=== PATIENT | female | born 2000 | race American Indian/Alaskan Native ===

== ENCOUNTER 2021-12-30 12:02 | Emergency (ER) | payer SELFPAY ==
[2021-12-30] MEDS ORDERED: METOCLOPRAMIDE 10 MG/2 ML INJ IV ONE (16:57)
[2021-12-30] MEDS ORDERED: SODIUM CHLORIDE 0.9% 1000 ML 1,000 ML IV ONE ×3 (16:57→20:33)
[2021-12-30] MEDS ORDERED: diphenhydrAMINE 50 MG/ML VIAL IV ONE (16:57)
[2021-12-30] MEDS ORDERED: dexAMETHasone 4 MG/ML VIAL IV ONE (16:57)
[2021-12-30 17:09] LABS: Bacteria,Urine 3+ /HPF (Negative); Mucus,Urine FEW /HPF
[2021-12-30 17:36] LABS: Color,Urine Yellow (Yellow); HCG Qualitative,Urine Negative (Negative)
[2021-12-30 18:01] LABS: Alanine Aminotransferase 31 units/L (7-56); Albumin 4.1 g/dL (3.9-5); BUN/Creatinine Ratio 14; Blood Urea Nitrogen 11 mg/dL (7-17); Calcium 8.7 mg/dL (8.4-10.2); Hemolysis Index 12
[2021-12-30 18:06] LABS: Hematocrit 34.9 % (30.3-42.9); Hemoglobin 11.5 gm/dl (10.1-14.3); Mean Corpuscular HGB Conc 33 % (30-34); Mean Corpuscular Volume 93 fl (79-97); Platelet Count 225 K/mm3 (140-440); Red Blood Count 3.77 M/mm3 (3.65-5.03); Red Cell Distribution Width 13.3 % (13.2-15.2)
[2021-12-30] MEDS ORDERED: cefTRIAXone/NS 1 GM/50 ML 1 GM/50 ML BAG IV ONE (18:23)
--- NOTE | 2021-12-30 18:26 | Emergency Department Report ---
ED Back Pain/Injury HPI - General Chief Complaint: Headache Stated Complaint: FEVER,MIGRAINES,EXCESSIVE SLEEPING, NOT SLEEPING Time Seen by Provider: 12/30/21 16:45 Source: patient, family Limitations: No Limitations - History of Present Illness Initial Comments: 21-year-old black female with no past medical history presents to the emergency department for evaluation of 1 week history of lower back pain and dysuria. She states that pain has gotten progressively worse and she has since developed nausea vomiting, decreased appetite, and headache. She states that her headache is 9 out of 10. She denies fever, abdominal pain, vaginal discharge, dizziness, diaphoresis, and vision changes. She states that she has not been able to keep anything down for the last 2 days. MD Complaint: back pain, other -: Gradual (Dysuria), week(s) (1) Similar Symptoms Previously: No Place: home Radiation: none Severity scale (0 -10): 10 Quality: aching Consistency: constant Associated Symptoms: headaches. denies: confusion, weakness, chest pain, numbness, difficulty walking, cough, difficulty urinating, diaphoresis, incontinence, fever/chills, constipation, abdominal pain, loss of appetite, malaise, nausea/vomiting, rash, seizure, shortness of breath, syncope - Related Data Previous Rx's Medication Instructions Recorded Last Taken Type Ondansetron [Zofran Odt] 4 mg PO Q8HR PRN #12 tab.rapdis 12/30/21 Unknown Rx Sulfamethoxazole/Trimethoprim 1 each PO BID 7 Days #14 tab 12/30/21 Unknown Rx [Bactrim DS TAB] Allergies Allergy/AdvReac Type Severity Reaction Status Date / Time No Known Allergies Allergy Verified 12/30/21 12:21 ED Review of Systems ROS: Stated complaint: FEVER,MIGRAINES,EXCESSIVE SLEEPING, NOT SLEEPING Other details as noted in HPI Comment: All other systems reviewed and negative Constitutional: denies: chills, fever, weakness Eyes: denies: vision change ENT: denies: congestion Respiratory: denies: shortness of breath, SOB with exertion, SOB at rest, wheezing Cardiovascular: denies: chest pain, palpitations Gastrointestinal: nausea, vomiting. denies: abdominal pain, diarrhea, hematemesis, melena, hematochezia Genitourinary: dysuria. denies: urgency, frequency, hematuria, discharge Musculoskeletal: back pain, myalgia. denies: joint swelling, arthralgia Neurological: headache. denies: weakness, numbness, paresthesias, confusion, abnormal gait ED Past Medical Hx - Past Medical History Previous Medical History?: No - Surgical History Past Surgical History?: No - Medications Home Medications: Home Medications Medication Instructions Recorded Confirmed Last Taken Type Ondansetron [Zofran Odt] 4 mg PO Q8HR PRN #12 tab.rapdis 12/30/21 Unknown Rx Sulfamethoxazole/Trimethoprim 1 each PO BID 7 Days #14 tab 12/30/21 Unknown Rx [Bactrim DS TAB] ED Physical Exam - General Limitations: No Limitations General appearance: alert, in no apparent distress - Head Head exam: Present: atraumatic, normocephalic - Eye Eye exam: Present: normal appearance. Absent: conjunctival injection, periorbital swelling, periorbital tenderness - ENT ENT exam: Present: normal exam - Neck Neck exam: Present: normal inspection. Absent: tenderness, lymphadenopathy - Respiratory Respiratory exam: Present: normal lung sounds bilaterally. Absent: respiratory distress, wheezes, rales, rhonchi, stridor, chest wall tenderness - Cardiovascular Cardiovascular Exam: Present: tachycardia, normal heart sounds - GI/Abdominal GI/Abdominal exam: Present: soft, normal bowel sounds. Absent: distended, tenderness, guarding, rebound, rigid - Extremities Exam Extremities exam: Present: normal inspection, full ROM, normal capillary refill. Absent: tenderness, pedal edema, joint swelling, calf tenderness - Back Exam Back exam: Present: normal inspection, full ROM, CVA tenderness (L). Absent: tenderness, CVA tenderness (R), muscle spasm, paraspinal tenderness, vertebral tenderness - Neurological Exam Neurological exam: Present: alert, oriented X3, normal gait - Psychiatric Psychiatric exam: Present: normal affect, normal mood - Skin Skin exam: Present: warm, dry, intact, normal color ED Course Vital Signs 12/30/21 12/30/21 12/30/21 12:18 19:15 20:30 Temperature 98.3 F 103.1 F H 101.1 F H Pulse Rate 117 H 128 H 129 H Respiratory 16 17 16 Rate Blood Pressure 99/65 102/57 100/58 [Right] O2 Sat by Pulse 100 100 98 Oximetry 12/30/21 21:40 Temperature 99.0 F Pulse Rate 92 H Respiratory 16 Rate Blood Pressure [Right] O2 Sat by Pulse 99 Oximetry - Reevaluation(s) Reevaluation #1: 12/30/21 18:55 Headache and nausea resolved. Patient states that she she feels much better. ED Medical Decision Making - Lab Data Result diagrams: 12/30/21 17:15 12/30/21 17:22 - Medical Decision Making 21-year-old black female with no past medical history presents to the emergency department for evaluation of 1 week history of lower back pain and dysuria. She states that pain has gotten progressively worse and she has since developed nausea vomiting, decreased appetite, and headache. She states that her headache is 9 out of 10. She denies fever, abdominal pain, vaginal discharge, dizziness, diaphoresis, and vision changes. She states that she has not been able to keep anything down for the last 2 days. Physical exam positive for CVA tenderness and urine positive for UTI. Patient noted to be tachycardic with some nausea. Patient was treated with 3 L of normal saline along with Rocephin 1 g IV, Decadron, Reglan, Benadryl, and Toradol blood pressure, heart rate, and temperature improved. Headache resolved, and patient states that she feels much better. Patient without any complaints of at this time and will be discharged home with Bactrim and Zofran to use as directed. She is advised to take medications as prescribed and follow-up with her primary care provider if no improvement or worsening symptoms. She verbalizes understanding of and agreement with plan of care. Critical care attestation.: If time is entered above; I have spent that time in minutes in the direct care of this critically ill patient, excluding procedure time. ED Disposition Clinical Impression: UTI (urinary tract infection) Qualifiers: Urinary tract infection type: acute cystitis Hematuria presence: without hematuria Qualified Code(s): N30.00 - Acute cystitis without hematuria Disposition: HOME / SELF CARE / HOMELESS Is pt being admited?: No Does the pt Need Aspirin: No Condition: Stable Instructions: Antibiotic Medicine, Adult, [id number], Urinary Tract Infection, Adult, [id number] Additional Instructions: Take medications as prescribed. Increase intake of noncaffeinated fluids. Follow-up with your primary care provider if no improvement or worsening symptoms. Return to the emergency department as needed. Prescriptions: Sulfamethoxazole/Trimethoprim [Bactrim DS TAB] 1 each PO BID 7 Days #14 tab Ondansetron [Zofran Odt] 4 mg PO Q8HR PRN #12 tab.rapdis PRN Reason: Nausea And Vomiting Referrals: JOHN JUAREZ MD [Primary Care Provider] - 3-5 Days Forms: Work/School Release Form(ED) Time of Disposition: 18:26
[2021-12-30] MEDS ORDERED: ACETAMINOPHEN 325 MG TAB PO ONE (19:15)
[2021-12-30] MEDS ORDERED: KETOROLAC 30 MG/1 ML INJ IV ONE (20:32)
[2021-12-30 21:59] VITALS: BP 100/58
== END 2021-12-30 21:50 | disposition home or self-care (01) ==
LOC: ED 12:02
DX: N39.0 Urinary tract infection, site not specified (principal)
CPT/HCPCS: 36415; 80053; 81001; 81025; 83690; 85027; 87076; 87086; 87186; 96361; 96365; 96375; 99284; J0696; J1100; J1200; J1885; J2765; J7030; 99283